=== PATIENT | male | born 1985 | race Caucasian/White ===

== ENCOUNTER 2019-11-04 14:15 | Emergency (ER) | payer SELFPAY ==
--- NOTE | 2019-11-04 14:49 | EDM.PDOC ---
ED HPI GENERAL MEDICAL PROBLEM - General Chief Complaint: Flank Pain Stated Complaint: [facility] Time Seen by Provider: 11/04/19 14:25 Source of Information: Reports: Patient, RN Notes Reviewed - History of Present Illness INITIAL COMMENTS - FREE TEXT/NARRATIVE: 34 yr old male comes in with L lower abd pain. this started about 4 hrs ago. pain is mostly L flank and L lower abd but also has radiated to RLQ. Has not radiated strongly to his back. Mild nausea, no vomiting. No voiding sx, no fever or chills. Pt came here by ambulance. was given dilaudid 0.5 mg and zofran 4 mg IV en route so pain not as severe at time of exam. Left Flank Pain Score (Numeric/FACES): 4 - Related Data Allergies Allergy/AdvReac Type Severity Reaction Status Date / Time bee venom protein (honey bee) Allergy Cannot Verified 11/04/19 14:20 Remember Home Meds: Home Meds Acetaminophen [Tylenol] 325 mg PO Q4H PRN 11/04/19 [History] Ibuprofen 200 mg PO Q6H PRN 11/04/19 [History] Past Medical History Gastrointestinal History: Reports: GERD - Past Surgical History GI Surgical History: Reports: Esophageal Dilatation Musculoskeletal Surgical History: Reports: Other (See Below) Other Musculoskeletal Surgeries/Procedures:: elbow sx Social & Family History - Family History Family Medical History: Noncontributory - Tobacco Use Smoking Status *Q: Current Every Day Smoker Years of Tobacco use: 10 Packs/Tins Daily: 1 Second Hand Smoke Exposure: No - Caffeine Use Caffeine Use: Reports: Coffee - Alcohol Use Days Per Week of Alcohol Use: 5 Number of Drinks Per Day: 1 Total Drinks Per Week: 5 - Recreational Drug Use Recreational Drug Use: No ED ROS GENERAL - Review of Systems Review Of Systems: See Below Constitutional: Denies: Fever, Chills, Diaphoresis HEENT: Reports: No Symptoms Respiratory: Denies: Shortness of Breath Cardiovascular: Denies: Chest Pain GI/Abdominal: Reports: Abdominal Pain, Constipation, Nausea. Denies: Diarrhea, Hematochezia, Melena, Vomiting : Reports: No Symptoms Musculoskeletal: Reports: No Symptoms Neurological: Reports: Dizziness ED EXAM, RENAL/ - Physical Exam Exam: See Below General Appearance: Alert, No Apparent Distress Throat/Mouth: Normal Inspection Neck: Supple Respiratory/Chest: No Respiratory Distress, Lungs Clear, Normal Breath Sounds Cardiovascular: Regular Rate, Rhythm GI/Abdominal: Soft, Tender (mild to moderate tenderness L abd and L lower abd, very mild tenderness RLQ) Extremities: Normal Inspection, Normal Range of Motion Neurological: Alert, Oriented, No Motor/Sensory Deficits Skin Exam: Warm, Dry, Normal Color Course - Vital Signs Last Recorded V/S: Last Vital Signs Temp 97.9 F 11/04/19 14:17 Pulse 96 11/04/19 14:17 Resp 18 11/04/19 14:17 BP 131/75 11/04/19 14:17 Pulse Ox 99 11/04/19 14:17 - Orders/Labs/Meds Orders: Active Orders 24 hr Category Date Time Status Peripheral IV Care [RC] . DIRECTED Care 11/04/19 15:00 Active Abdomen 2V AP Flat Upright [CR] Stat Exams 11/04/19 15:49 Taken Peripheral IV Insertion Adult [OM.PC] Stat Oth 11/04/19 14:59 Ordered Labs: Laboratory Tests 11/04/19 11/04/19 11/04/19 Range/Units 14:48 15:20 15:20 WBC 15.72 H (4.23-9.07) K/mm3 RBC 4.90 (4.63-6.08) M/mm3 Hgb 14.0 (13.7-17.5) gm/dl Hct 42.8 (40.1-51.0) % MCV 87.3 (79.0-92.2) fl MCH 28.6 (25.7-32.2) pg MCHC 32.7 (32.2-35.5) g/dl RDW Std Deviation 46.4 H (35.1-43.9) fL Plt Count 257 (163-337) K/mm3 MPV 9.9 (9.4-12.3) fl Neut % (Auto) 91.3 H (34.0-67.9) % Lymph % (Auto) 4.0 L (21.8-53.1) % [place] % (Auto) 4.3 L (5.3-12.2) % Eos % (Auto) 0.1 L (0.8-7.0) Baso % (Auto) 0.2 (0.1-1.2) % Neut # (Auto) 14.35 H (1.78-5.38) K/mm3 Lymph # (Auto) 0.63 L (1.32-3.57) K/mm3 [place] # (Auto) 0.67 (0.30-0.82) K/mm3 Eos # (Auto) 0.02 L (0.04-0.54) K/mm3 Baso # (Auto) 0.03 (0.01-0.08) K/mm3 Manual Slide Review Abnormal smear Sodium (136-145) mEq/L Potassium (3.5-5.1) mEq/L Chloride (98-107) mEq/L Carbon Dioxide (21-32) mEq/L Anion Gap (5-15) BUN (7-18) mg/dL Creatinine (0.7-1.3) mg/dL Est Cr Clr Drug Dosing mL/min Estimated GFR (MDRD) (>60) mL/min BUN/Creatinine Ratio (14-18) Glucose (74-106) mg/dL Calcium (8.5-10.1) mg/dL Total Bilirubin (0.2-1.0) mg/dL AST (15-37) U/L ALT (16-63) U/L Alkaline Phosphatase (46-116) U/L C-Reactive Protein 0.4 (<1.0) mg/dL Total Protein (6.4-8.2) g/dl Albumin (3.4-5.0) g/dl Globulin gm/dL Albumin/Globulin Ratio (1-2) Urine Color Yellow (Yellow) Urine Appearance Clear (Clear) Urine pH 5.5 (5.0-8.0) Ur Specific [place] > or = 1.030 (1.005-1.030) Urine Protein Negative (Negative) Urine Glucose (UA) Negative (Negative) Urine Ketones Negative (Negative) Urine Occult Blood Negative (Negative) Urine Nitrite Negative (Negative) Urine Bilirubin Negative (Negative) Urine Urobilinogen 0.2 (0.2-1.0) Ur Leukocyte Esterase Negative (Negative) 11/04/19 Range/Units 15:20 WBC (4.23-9.07) K/mm3 RBC (4.63-6.08) M/mm3 Hgb (13.7-17.5) gm/dl Hct (40.1-51.0) % MCV (79.0-92.2) fl MCH (25.7-32.2) pg MCHC (32.2-35.5) g/dl RDW Std Deviation (35.1-43.9) fL Plt Count (163-337) K/mm3 MPV (9.4-12.3) fl Neut % (Auto) (34.0-67.9) % Lymph % (Auto) (21.8-53.1) % [place] % (Auto) (5.3-12.2) % Eos % (Auto) (0.8-7.0) Baso % (Auto) (0.1-1.2) % Neut # (Auto) (1.78-5.38) K/mm3 Lymph # (Auto) (1.32-3.57) K/mm3 [place] # (Auto) (0.30-0.82) K/mm3 Eos # (Auto) (0.04-0.54) K/mm3 Baso # (Auto) (0.01-0.08) K/mm3 Manual Slide Review Sodium 143 (136-145) mEq/L Potassium 4.1 (3.5-5.1) mEq/L Chloride 106 (98-107) mEq/L Carbon Dioxide 25 (21-32) mEq/L Anion Gap 16.1 H (5-15) BUN 19 H (7-18) mg/dL Creatinine 0.8 (0.7-1.3) mg/dL Est Cr Clr Drug Dosing 104.71 mL/min Estimated GFR (MDRD) > 60 (>60) mL/min BUN/Creatinine Ratio 23.8 H (14-18) Glucose 128 H (74-106) mg/dL Calcium 9.3 (8.5-10.1) mg/dL Total Bilirubin 0.2 (0.2-1.0) mg/dL AST 31 (15-37) U/L ALT 52 (16-63) U/L Alkaline Phosphatase 88 (46-116) U/L C-Reactive Protein (<1.0) mg/dL Total Protein 7.5 (6.4-8.2) g/dl Albumin 3.9 (3.4-5.0) g/dl Globulin 3.6 gm/dL Albumin/Globulin Ratio 1.1 (1-2) Urine Color (Yellow) Urine Appearance (Clear) Urine pH (5.0-8.0) Ur Specific [place] (1.005-1.030) Urine Protein (Negative) Urine Glucose (UA) (Negative) Urine Ketones (Negative) Urine Occult Blood (Negative) Urine Nitrite (Negative) Urine Bilirubin (Negative) Urine Urobilinogen (0.2-1.0) Ur Leukocyte Esterase (Negative) Meds: Medications Discontinued Medications Generic Name Dose Route Start Last Admin Trade Name Freq PRN Reason Stop Dose Admin Sodium Chloride 1,000 mls @ 999 mls/hr 11/04/19 15:00 11/04/19 15:13 Normal Saline IV 999 mls/hr ONETIME RALPH Administration Magnesium Citrate 296 ml 11/04/19 16:56 11/04/19 17:06 Citrate Of Magnesia PO 11/04/19 16:57 296 ml ONETIME ONE Administration Sodium Chloride 10 ml 11/04/19 14:59 11/04/19 15:13 Saline Flush FLUSH 10 ml ASDIRECTED PRN Administration Keep Vein Open - Re-Assessments/Exams Free Text/Narrative Re-Assessment/Exam: 11/04/19 18:44 WBC mildly elevated, CRP nl. flat and upright abd shows a lot of stool R colon. He is resting pretty comfortably at time of reexam. His tenderness is still L abd, he does not have a surgical abd at this time, discharge instr. as documented. Departure - Departure Time of Disposition: 16:56 Disposition: Home, Self-Care 01 Condition: Fair Clinical Impression: Abdominal pain Qualifiers: Abdominal location: left lower quadrant Qualified Code(s): R10.32 - Left lower quadrant pain Constipation Qualifiers: Constipation type: unspecified constipation type Qualified Code(s): K59.00 - Constipation, unspecified - Discharge Information Referrals: PCP,None [Primary Care Provider] - Forms: ED Department Discharge Additional Instructions: Clear liquids until tomorrow, than careful bland diet as tolerated. Mag citrate , drink 1/2 bottle this evening, drink the other half if you have not a good BM by tomorrow morning. Return to ED if symptoms worsening in any way, especially if pain moves to right lower abd as discussed. Sepsis Event Note - Evaluation Sepsis Screening Result: No Definite Risk - Focused Exam Vital Signs: Vital Signs Temp Pulse Resp BP Pulse Ox 11/04/19 14:17 97.9 F 96 18 131/75 99 Date Exam was Performed: 11/04/19 Time Exam was Performed: 18:43 - My Orders Last 24 Hours: My Active Orders 11/04/19 14:59 Peripheral IV Insertion Adult [OM.PC] Stat 11/04/19 15:00 Peripheral IV Care [RC] . DIRECTED 11/04/19 15:49 Abdomen 2V AP Flat Upright [CR] Stat - Assessment/Plan Last 24 Hours: My Active Orders 11/04/19 14:59 Peripheral IV Insertion Adult [OM.PC] Stat 11/04/19 15:00 Peripheral IV Care [RC] . DIRECTED 11/04/19 15:49 Abdomen 2V AP Flat Upright [CR] Stat
[2019-11-04] MEDS ORDERED: Sodium Chloride 0.9% 10 ML Syringe FLUSH PRN (14:59)
[2019-11-04] MEDS ORDERED: Sodium Chloride 0.9% 1,000 ML IV SCH (15:00)
[2019-11-04] MEDS ORDERED: Magnesium Citrate Solution 296 ML Bottle PO ONE (16:56)
--- NOTE | 2019-11-05 07:48 | CR ---
Abdomen: Supine and upright views the abdomen were obtained. Comparison: No previous study. Scattered gas within small bowel is noted. Hazy soft tissue density is noted within the left abdomen raising the possibility of left-sided abdominal mass. Bony structures are unremarkable. No free air is seen. Impression: 1. Masslike density within the left abdomen. 2. 2 view abdominal study is otherwise unremarkable. Diagnostic code #3 This report was dictated in MDT
== END 2019-11-04 17:05 | disposition home or self-care (01) ==
LOC: JD.ED 14:15
DX: K59.00 Constipation, unspecified (principal); F17.210 Nicotine dependence, cigarettes, uncomplicated; Z91.030 Bee allergy status
CPT/HCPCS: 36415; 74019; 80053; 81003; 85025; 86140; 96360; 99284; A9270; J7030; 99283

== ENCOUNTER 2019-11-05 00:25 | Emergency (ER) | payer SELFPAY ==
[2019-11-05] MEDS ORDERED: HYDROmorphone 1 MG/ML Syringe IVPUSH ONE ×2 (00:50→03:54)
[2019-11-05] MEDS ORDERED: Metoclopramide 10 MG/2 ML SDV IVPUSH ONE (00:50)
--- NOTE | 2019-11-05 00:56 | EDM.PDOC ---
ED HPI GENERAL MEDICAL PROBLEM - General Chief Complaint: Abdominal Pain Stated Complaint: ABDOMINAL PAIN Time Seen by Provider: 11/05/19 00:50 Source of Information: Reports: Patient History Limitations: Reports: No Limitations - History of Present Illness INITIAL COMMENTS - FREE TEXT/NARRATIVE: 34-year-old male returns to the ED with worsening left ellen-abdominal pain. He states pain started Tuesday evening and has progressively worsened. Through the ED earlier yesterday at 1430 hrs. with left ellen-abdominal pain. He was found to have an elevated white count at that time without a fever. He was treated for constipation and states that he did have 2 very small minimal bowel movements after taking the magnesium citrate. He states now even if he tries to take water comes back up almost immediately. He feels bloated and distended. It hurts to cough take a deep breath or riding a vehicle on the left side of the abdomen. He believes that he still voiding normally although it seems to be slower to start his stream. He states he is still passing some flatus per rectum. He did experience fever and chills with Rigor's about 1800 hrs. last night. Has had no previous abdominal surgery. Onset: Gradual Onset Date: 11/03/19 Onset Time: 22:00 Duration: Hour(s):, Getting Worse Location: Reports: Abdomen (Left ellen-abdominal pain) Quality: Reports: Other (Erwin pain with a colicky component) Severity: Moderate (8 out of 10) Improves with: Reports: None Worsens with: Reports: Other Context: Reports: Other (On 10 he is occurrence gradually worsening over the last 30 hours). Denies: Activity (Drinking water makes him vomit.), Exercise, Lifting, Sick Contact, Trauma Associated Symptoms: Reports: Fever/Chills, Loss of Appetite, Malaise, Nausea/ Vomiting. Denies: Headaches, Rash, Seizure, Shortness of Breath, Syncope Treatments ADMITTING COORDINATOR: Reports: Acetaminophen, NSAIDS Left Lower Abdomen Pain Score (Numeric/FACES): 6 - Related Data Allergies Allergy/AdvReac Type Severity Reaction Status Date / Time bee venom protein (honey bee) Allergy Cannot Verified 11/05/19 00:36 Remember Home Meds: Home Meds Acetaminophen [Tylenol] 325 mg PO Q4H PRN 11/04/19 [History] Ibuprofen 200 mg PO Q6H PRN 11/04/19 [History] Past Medical History Gastrointestinal History: Reports: GERD - Past Surgical History GI Surgical History: Reports: Esophageal Dilatation Musculoskeletal Surgical History: Reports: Other (See Below) Other Musculoskeletal Surgeries/Procedures:: elbow sx Social & Family History - Family History Family Medical History: Noncontributory - Tobacco Use Smoking Status *Q: Never Smoker - Caffeine Use Caffeine Use: Reports: None - Living Situation & Occupation Living situation: Reports: Single Occupation: Employed ED ROS GENERAL - Review of Systems Review Of Systems: See Below Constitutional: Reports: Fever, Chills, Malaise, Weakness, Fatigue, Decreased Appetite HEENT: Reports: No Symptoms Respiratory: Reports: Shortness of Breath Cardiovascular: Reports: No Symptoms (Cannot take a full deep breath as it makes the abdominal pain worse.) Endocrine: Reports: No Symptoms GI/Abdominal: Reports: Abdominal Pain (Diffuse left ellen-abdominal pain), Distension, Flatus (Feels distended and bloated. He believes he still passing flatus), Vomiting (Lisseth water content). Denies: Constipation, Melena, Other : Reports: No Symptoms Musculoskeletal: Reports: No Symptoms Skin: Reports: No Symptoms Neurological: Reports: No Symptoms Psychiatric: Reports: No Symptoms Hematologic/Lymphatic: Reports: No Symptoms Immunologic: Reports: No Symptoms ED EXAM, GI/ABD - Physical Exam Exam: See Below Exam Limited By: No Limitations General Appearance: Alert, WD/WN, Mild Distress, Other (Temperature is 36.4 with a heart rate of 93 respiratory is 20 pulse ox 98% room air BP mildly elevated 1 4093) Eyes: Bilateral: Normal Appearance (No scleral icterus or blepharal pallor) Throat/Mouth: Normal Inspection, Normal Lips, Normal Oropharynx, Other (Tongue is moist but black in color as he did have some Pepto-Bismol earlier yesterday) Head: Atraumatic, Normocephalic Neck: Normal Inspection, Supple, Non-Tender, Full Range of Motion. No: Lymphadenopathy (L), Lymphadenopathy (R) Respiratory/Chest: No Respiratory Distress, Lungs Clear, Normal Breath Sounds ( Mild tachypnea.), No Accessory Muscle Use, Respiratory Distress Cardiovascular: Normal Peripheral Pulses, Regular Rate, Rhythm, No Edema, No Gallop, No Murmur, No Rub GI/Abdominal Exam: Distended (The abdomen is diffusely distended and tympanitic to percussion in the upper abdomen but dull to percussion lower abdomen.), Guarding, Rigid, Rebound (On the left hemiabdomen particularly mid left abdomen) , Abnormal Bowel Sounds (All sounds are hyperactive in all 4 quadrants.), Mass ( Left mid abdomen left upper quadrant feels like a solid mass either kidney or spleen.), Other (No surgical scars) (Male) Exam: No Hernia Back Exam: Normal Inspection, Full Range of Motion. No: CVA Tenderness (L), CVA Tenderness (R) Extremities: Normal Inspection, Normal Range of Motion, Non-Tender Neurological: Alert, Oriented, CN II-XII Intact, Normal Cognition Psychiatric: Normal Affect, Normal Mood Skin Exam: Warm, Dry, Intact, Normal Color, No Rash Course - Vital Signs Last Recorded V/S: Last Vital Signs Temp 36.8 C 11/05/19 03:52 Pulse 102 H 11/05/19 03:52 Resp 18 11/05/19 03:52 BP 152/94 H 11/05/19 03:52 Pulse Ox 97 11/05/19 03:52 - Orders/Labs/Meds Orders: Active Orders 24 hr Category Date Time Status Abdomen Pelvis w Cont [CT] Stat Exams 11/05/19 00:52 Taken CULTURE BLOOD [BC] Stat Lab 11/05/19 01:05 Received CULTURE BLOOD [BC] Stat Lab 11/05/19 01:25 Received Dextrose 5%-0.9% NaCl [Dextrose 5%-Normal Saline] 1,000 Med 11/05/19 01:00 Active ml IV ASDIRECTED Sodium Chloride 0.9% [Saline Flush] Med 11/05/19 01:42 Active 10 ml FLUSH ONETIME PRN Blood Culture x2 Reflex Set [OM.PC] Stat Oth 11/05/19 00:51 Ordered Medication Orders Dextrose/Sodium Chloride (Dextrose 5%-Normal Saline) 1,000 mls @ 999 mls/hr IV ASDIRECTED RALPH Last Admin: 11/05/19 01:16 Dose: 999 mls/hr Sodium Chloride (Saline Flush) 10 ml FLUSH ONETIME PRN PRN Reason: KEEP VEIN OPEN Last Admin: 11/05/19 02:34 Dose: 10 ml Labs: Laboratory Tests 11/05/19 11/05/19 11/05/19 Range/Units 01:05 01:05 01:05 WBC 12.29 H (4.23-9.07) K/mm3 RBC 4.09 L (4.63-6.08) M/mm3 Hgb 11.5 L D (13.7-17.5) gm/dl Hct 36.0 L (40.1-51.0) % MCV 88.0 (79.0-92.2) fl MCH 28.1 (25.7-32.2) pg MCHC 31.9 L (32.2-35.5) g/dl RDW Std Deviation 47.0 H (35.1-43.9) fL Plt Count 257 (163-337) K/mm3 MPV 10.2 (9.4-12.3) fl Neutrophils % (Manual) 76 H (40-60) % Band Neutrophils % 0 (0-10) % Lymphocytes % (Manual) 17 L (20-40) % Atypical Lymphs % 0 % Monocytes % (Manual) 6 (2-10) % Eosinophils % (Manual) 1 (0.8-7.0) % Basophils % (Manual) 0 L (0.2-1.2) Platelet Estimate Adequate RBC Morph Comment Normal PT 10.7 (9.7-12.0) SECONDS INR 0.98 APTT 24 (22-31) SECONDS Sodium 145 (136-145) mEq/L Potassium 3.5 (3.5-5.1) mEq/L Chloride 108 H (98-107) mEq/L Carbon Dioxide 24 (21-32) mEq/L Anion Gap 16.5 H (5-15) BUN 17 (7-18) mg/dL Creatinine 0.8 (0.7-1.3) mg/dL Est Cr Clr Drug Dosing 104.71 mL/min Estimated GFR (MDRD) > 60 (>60) mL/min BUN/Creatinine Ratio 21.3 H (14-18) Glucose 133 H (74-106) mg/dL Lactic Acid (0.4-2.0) mmol/L Calcium 8.3 L (8.5-10.1) mg/dL Magnesium 2.1 (1.8-2.4) mg/dl Total Bilirubin 0.2 (0.2-1.0) mg/dL AST 28 (15-37) U/L ALT 40 (16-63) U/L Alkaline Phosphatase 78 (46-116) U/L C-Reactive Protein 1.0 (<1.0) mg/dL Total Protein 6.8 (6.4-8.2) g/dl Albumin 3.5 (3.4-5.0) g/dl Globulin 3.3 gm/dL Albumin/Globulin Ratio 1.1 (1-2) Lipase 110 (73-393) U/L 11/05/19 Range/Units 01:05 WBC (4.23-9.07) K/mm3 RBC (4.63-6.08) M/mm3 Hgb (13.7-17.5) gm/dl Hct (40.1-51.0) % MCV (79.0-92.2) fl MCH (25.7-32.2) pg MCHC (32.2-35.5) g/dl RDW Std Deviation (35.1-43.9) fL Plt Count (163-337) K/mm3 MPV (9.4-12.3) fl Neutrophils % (Manual) (40-60) % Band Neutrophils % (0-10) % Lymphocytes % (Manual) (20-40) % Atypical Lymphs % % Monocytes % (Manual) (2-10) % Eosinophils % (Manual) (0.8-7.0) % Basophils % (Manual) (0.2-1.2) Platelet Estimate RBC Morph Comment PT (9.7-12.0) SECONDS INR APTT (22-31) SECONDS Sodium (136-145) mEq/L Potassium (3.5-5.1) mEq/L Chloride (98-107) mEq/L Carbon Dioxide (21-32) mEq/L Anion Gap (5-15) BUN (7-18) mg/dL Creatinine (0.7-1.3) mg/dL Est Cr Clr Drug Dosing mL/min Estimated GFR (MDRD) (>60) mL/min BUN/Creatinine Ratio (14-18) Glucose (74-106) mg/dL Lactic Acid 1.2 (0.4-2.0) mmol/L Calcium (8.5-10.1) mg/dL Magnesium (1.8-2.4) mg/dl Total Bilirubin (0.2-1.0) mg/dL AST (15-37) U/L ALT (16-63) U/L Alkaline Phosphatase (46-116) U/L C-Reactive Protein (<1.0) mg/dL Total Protein (6.4-8.2) g/dl Albumin (3.4-5.0) g/dl Globulin gm/dL Albumin/Globulin Ratio (1-2) Lipase (73-393) U/L Meds: Medications Generic Name Dose Route Start Last Admin Trade Name Freq PRN Reason Stop Dose Admin Dextrose/Sodium Chloride 1,000 mls @ 999 mls/hr 11/05/19 01:00 11/05/19 01:16 Dextrose 5%-Normal Saline IV 999 mls/hr ASDIRECTED RALPH Administration Sodium Chloride 10 ml 11/05/19 01:42 11/05/19 02:34 Saline Flush FLUSH 10 ml ONETIME PRN Administration KEEP VEIN OPEN Discontinued Medications Generic Name Dose Route Start Last Admin Trade Name Freq PRN Reason Stop Dose Admin Diatrizoate Meglum/Diatrizoate Sod 60 ml 11/05/19 01:42 11/05/19 02:34 Gastrografin 37% PO 11/05/19 01:43 60 ml ONETIME ONE Administration Hydromorphone HCl 1 mg 11/05/19 00:50 11/05/19 01:16 Dilaudid IVPUSH 11/05/19 00:51 1 mg ONETIME ONE Administration Hydromorphone HCl 1 mg 11/05/19 03:54 Dilaudid IVPUSH 11/05/19 03:55 ONETIME ONE Iopamidol 100 ml 11/05/19 01:42 11/05/19 02:34 Isovue-300 (61%) IVPUSH 11/05/19 01:43 100 ml ONETIME ONE Administration Metoclopramide HCl 10 mg 11/05/19 00:50 11/05/19 01:16 Reglan IVPUSH 11/05/19 00:51 10 mg ONETIME ONE Administration - Radiology Interpretation Free Text/Narrative:: 34-year-old male presents to the ED for the second time in 24 hours with worsening left-sided ellen-abdominal pain. He was seen earlier yesterday afternoon with left-sided abdominal pain that started at 2200 hrs. the night before. He had an elevated white count at 15.72 with 91.3% neutrophils on the auto differential. Subsequently he is experienced fever and chills with Reiger' s this last evening and gradually worsening of the pain. It hurts to walk it hurts to cough it hurts to ride in a vehicle. Examination reveals him to be significantly distended abdominally. Tympanitic to percussion mostly over right hemiabdomen. Dull to percussion in the left hemiabdomen. He has peritoneal signs on levo light percussion on the left side and a very firm guarding fullness/mass affect throughout the left hemiabdomen. Inguinal hernia identified. No previous surgical scars. He believes he still passing some flatus. Clinically has an acute abdomen of unclear etiology on the left side. I did look at his KUB done earlier yesterday and it did show an absence of bowel and gas on the left side of the abdomen. Alysis done earlier this morning was negative for any red cells as he was complaining of some left flank pain at the time of Dr. Mann's exam I am not sure he will build to keep down oral contrast but we will give it a try. He will require CT of the abdomen with oral and IV contrast ideally. Repeat labs including blood cultures x2 will be done. Lactic acid as well. - Re-Assessments/Exams Free Text/Narrative Re-Assessment/Exam: 11/05/19 02:03 White count is 12.29 differential pending. Hemoglobin is 11.5 with hematocrit of 36.0. Platelet count 257,000. PT is 10.7 with an INR of 0.98. PTT is 24. Sodium 145 with a potassium of 3.5. Chloride 108 with a bicarb of 24. Anion gap is mildly elevated at 16.5. BUN is 17 with a creatinine of 0.8. Glucose is 133. Lactic acid is 1.2. Calcium is 8.3. Magnesium is 2.1. Bilirubin is 0.2. Liver function otherwise normal. C- reactive protein is pending. Total protein was 6.8 with an albumin fraction of 3.5 lipase is 110 normal. 11/05/19 02:55 Differential of the white count reveal 76% neutrophils no bands cells 17% lymphocytes. CT of the abdomen and pelvis has been done with IV and oral contrast. Visualized portions of the heart and base of lungs appear to be normal. Stomach appears to be normal and is contrast-filled. Spleen is normal. Pancreas appears normal. Liver appears homogeneous. There are no calcified gallstones and a mildly distended gallbladder. Only the right adrenal gland is visualized and is normal. On the left side there is a large complicated cystic mass which appears to be originating from the lower pole of the left kidney that measures 11 cm x 13.6 centimeters. Visualized portions of the bowel appear to be normal. Bladder is filled and is normal. Once again I would I will await the radiologist report but it appears that he likely is going to have to have emergent consultation with surgeon. 11/05/19 03:40 Vrad report is now available. There are comments are that the liver appears normal with no masses. Gallbladder and bile ducts are normal. Pancreas is normal with no ductal dilatation spleen appears normal. Adrenal glands are normal with no masses. Kidneys and ureters show a large left renal lower pole mass containing fat and soft tissue components with associated perinephric hemorrhage. Mass measures approximately 10.7 x 7.5 cm and extends craniocaudally 13.2 cm. 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 Mild left hydronephrosis appreciated. Stomach and bowel showed liquid stool throughout the colon. Appendix is within normal limits. Intraperitoneal space is unremarkable no free air no significant fluid collections. Vasculature a small 1.3 cm focus of contrast within the mass could represent possible pseudoaneurysm or may be part of AML or represent active hemorrhage. Note on recheck his hemoglobin is 14.0 when he was seen as then 24 hours ago now down to 11.5. 11/05/19 04:00 I have discussed the case with Dr. 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 He is unclear at this point time how will be managed. Possible interventional radiology management. I did speak with through the ED whom has accepted care of this patient. He will therefore be transported to their facility by ground ambulance. Is having more pain at this time and a repeated Dilaudid 1 mg IV. 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 Sepsis Event Note - Evaluation Sepsis Screening Result: No Definite Risk - Focused Exam Vital Signs: Vital Signs Temp Pulse Resp BP Pulse Ox 11/05/19 03:52 36.8 C 102 H 18 152/94 H 97 11/05/19 02:47 78 143/89 H 97 11/05/19 00:31 36.4 C 93 20 140/93 H 98 Date Exam was Performed: 11/05/19 Time Exam was Performed: 04:00 - My Orders Last 24 Hours: My Active Orders 11/05/19 00:51 Blood Culture x2 Reflex Set [OM.PC] Stat 11/05/19 00:52 Abdomen Pelvis w Cont [CT] Stat 11/05/19 01:00 Dextrose 5%-0.9% NaCl [Dextrose 5%-Normal Saline] 1,000 ml IV ASDIRECTED 11/05/19 01:05 CULTURE BLOOD [BC] Stat 11/05/19 01:25 CULTURE BLOOD [BC] Stat 11/05/19 01:42 Sodium Chloride 0.9% [Saline Flush] 10 ml FLUSH ONETIME PRN - Assessment/Plan Last 24 Hours: My Active Orders 11/05/19 00:51 Blood Culture x2 Reflex Set [OM.PC] Stat 11/05/19 00:52 Abdomen Pelvis w Cont [CT] Stat 11/05/19 01:00 Dextrose 5%-0.9% NaCl [Dextrose 5%-Normal Saline] 1,000 ml IV ASDIRECTED 11/05/19 01:05 CULTURE BLOOD [BC] Stat 11/05/19 01:25 CULTURE BLOOD [BC] Stat 11/05/19 01:42 Sodium Chloride 0.9% [Saline Flush] 10 ml FLUSH ONETIME PRN
[2019-11-05] MEDS ORDERED: Dextrose 5%-0.9% NaCl 1,000 ML IV SCH (01:00)
[2019-11-05] MEDS ORDERED: Diatrizoate Meglumine/Diatrizoate Sodium 37% 120 ML Bottle PO ONE (01:42)
[2019-11-05] MEDS ORDERED: Sodium Chloride 0.9% 10 ML Syringe FLUSH PRN (01:42)
[2019-11-05] MEDS ORDERED: Iopamidol 612 MG/ML 100 ML Bottle IVPUSH ONE (01:42)
[2019-11-05] MEDS ORDERED: Sodium Chloride 0.9% with KCl 1,000 ML IV SCH (04:15)
--- NOTE | 2019-11-05 07:49 | CT ---
CT abdomen and pelvis Technique: Multiple axial sections were obtained from above the dome of the diaphragm inferiorly through the pubic symphysis. Intravenous and oral contrast was utilized. Delayed images were also obtained through the abdomen and pelvis. Comparison: Prior abdominal x-ray performed earlier on 11/04/19. Findings: Fatty containing lesion is seen within the lower left kidney measuring approximately 10.0 cm in size. Acute hemorrhage is seen surrounding this mass is a well as surrounding the left kidney. There is a focal area of contrast within this mass presumably due to acute hemorrhage measuring 1.4 cm. Differential for this 1.4 cm finding also includes a pseudoaneurysm. No additional abnormality is seen within the kidneys. Delayed images shows contrast excretion from both kidneys. Contrast is noted within both distal ureters and bladder on the delayed images. Other findings: Visualized lung bases show nothing acute. Liver contains no focal parenchymal abnormality. Spleen appears within normal limits. Adrenal glands show no nodule. Gallbladder contains no calcified gallstones. Pancreas appears normal. Aorta shows no aneurysm. No retroperitoneal adenopathy or mesenteric abnormalities are seen. Small fat-containing inguinal hernias are identified bilaterally. Appendix not visualized with certainty. Liquid stool noted within the colon. Bone window settings were reviewed which show no acute osseous finding. Minimal fat-containing umbilical hernias are noted. Impression: 1. Large fatty containing mass within the lower left kidney measuring around 10.0 cm. This finding is most likely due to an angiomyolipoma. There is hemorrhage being seen within and around this mass and associated kidney which is compatible with a bleeding angiomyolipoma. 2. 1.4 cm focal area of contrast within this mass which may represent active bleeding or pseudoaneurysm. 3. No other acute abnormality is appreciated on CT study of the abdomen and pelvis. Diagnostic code #5 This report was dictated in MDT I agree with preliminary report from [facility], finalized on 11/05/19, 4:29 AM Central Time
== END 2019-11-05 04:21 ==
LOC: JD.ED 00:25
DX: N28.89 Other specified disorders of kidney and ureter (principal); K21.9 Gastro-esophageal reflux disease without esophagitis; Z91.030 Bee allergy status
CPT/HCPCS: 36415; 74177; 80053; 83605; 83690; 83735; 85007; 85027; 85610; 85730; 86140; 87040; 96361; 96374; 96375; 96376; 99285; J1170; J2765; J3480; J7042; Q9963; Q9967

== ENCOUNTER 2019-12-30 16:51 | Emergency (ER) | payer OTHER ==
--- NOTE | 2019-12-30 17:20 | EDM.PDOC ---
ED HPI GENERAL MEDICAL PROBLEM - General Chief Complaint: Flank Pain Stated Complaint: KIDNEY TUMOR NOW HAS BLOOD IN URINE Time Seen by Provider: 12/30/19 17:19 Source of Information: Reports: Patient History Limitations: Reports: No Limitations - History of Present Illness INITIAL COMMENTS - FREE TEXT/NARRATIVE: 34-year-old male presents to the ED with gross hematuria. He states his first void this morning was about 10:00 in the urine was darker in color and perhaps slightly kaz. The next urine seemed to be fairly clear. However the last urine which was about 3 hours ago came out gross hematuria and he has pictures to prove it. Patient is known to have an angiomyolipoma of the left kidney and was sent to [place] November 04 when it was discovered on CT scan. Nights unclear at this time what transpired but the goal at that time was to have interventional radiology perhaps embolize the large angiomyolipoma with the hopes of causing it to shrink as it appeared to be hemorrhaging within itself. Ports he had to see a rn baby about 2 weeks ago because of elevated platelet count. The rn baby felt that this was nothing serious. Onset: Today Onset Date: 12/30/19 Onset Time: 10:00 Duration: Hour(s):, Getting Worse Location: Reports: Abdomen (Left mid abdominal pain), Other (Gross hematuria on multiple occasions today) Quality: Reports: Ache, Other (There was hematuria) Severity: Severe Improves with: Reports: None Worsens with: Reports: None Context: Denies: Activity, Exercise, Lifting, Sick Contact, Trauma, Other Associated Symptoms: Denies: Confusion, Chest Pain, Cough, cough w sputum, Fever /Chills, Headaches, Loss of Appetite, Malaise, Nausea/Vomiting, Rash, Shortness of Breath, Syncope, Weakness Treatments CLINICAL INFORMATICS SPEC: Reports: Other (see below) (None.) - Related Data Allergies Allergy/AdvReac Type Severity Reaction Status Date / Time bee venom protein (honey bee) Allergy Cannot Verified 11/05/19 00:36 Remember Home Meds: Home Meds Acetaminophen [Tylenol] 325 mg PO Q4H PRN 11/04/19 [History] Past Medical History Gastrointestinal History: Reports: GERD Genitourinary History: Reports: Other (See Below) Other Genitourinary History: large 'soft ball size' fatty tumor( angiomyolipoma ) on left kindey. states it ruptured and he had surgery but is unsure if tumor is still there or if it was removed. - Past Surgical History GI Surgical History: Reports: Esophageal Dilatation Musculoskeletal Surgical History: Reports: Other (See Below) Other Musculoskeletal Surgeries/Procedures:: elbow sx Social & Family History - Family History Family Medical History: Noncontributory - Tobacco Use Smoking Status *Q: Current Every Day Smoker Years of Tobacco use: 15 Packs/Tins Daily: 1 - Caffeine Use Caffeine Use: Reports: Coffee - Living Situation & Occupation Living situation: Reports: Single Occupation: Employed ED ROS GENERAL - Review of Systems Review Of Systems: See Below Constitutional: Reports: Fever, Chills, Malaise (Last week but not in the last 48 hours), Fatigue, Decreased Appetite (More fatigued than normal). Denies: Weight Loss HEENT: Reports: No Symptoms Respiratory: Reports: No Symptoms Cardiovascular: Reports: No Symptoms Endocrine: Reports: Fatigue GI/Abdominal: Reports: Abdominal Pain (Left mid upper abdominal pain rating through to the left flank), Nausea (Occasional nausea). Denies: Constipation, Diarrhea : Reports: Flank Pain (Flank pain), Other (Post hematuria). Denies: Dysuria Musculoskeletal: Reports: No Symptoms Skin: Reports: Pallor (No pallor) Neurological: Reports: No Symptoms Psychiatric: Reports: No Symptoms Hematologic/Lymphatic: Reports: No Symptoms Immunologic: Reports: No Symptoms ED EXAM, RENAL/ - Physical Exam Exam: See Below Exam Limited By: No Limitations General Appearance: Alert, WD/WN, No Apparent Distress, Other (Temperature is 36.5 heart rate 108 and sinus respiratory to be 18 BP 146 101 with O2 sats of 97 % on room air) Eye Exam: Bilateral Eye: PERRL, Other (Mild blepharal pallor.) Throat/Mouth: Normal Inspection, Normal Lips, Normal Oropharynx Head: Atraumatic, Normocephalic Neck: Normal Inspection, Supple, Non-Tender, Full Range of Motion. No: Lymphadenopathy (L), Lymphadenopathy (R) Respiratory/Chest: No Respiratory Distress, Lungs Clear, Normal Breath Sounds, No Accessory Muscle Use Cardiovascular: Normal Peripheral Pulses, Regular Rate, Rhythm, No Edema, No Gallop, No Murmur, No Rub, Tachycardia GI/Abdominal: Normal Bowel Sounds, Guarding (Left mid abdomen.), Tender (In his mid left hemiabdomen and left upper quadrant. There is a palpable mass in this area as large as my hand.). No: No Mass, Distended ( Pain radiates through to the left flank on palpation.), Rigid, Rebound (Male) Exam: No Hernia, Circumcised Back Exam: CVA Tenderness (L). No: CVA Tenderness (R), Decreased Range of Motion, Muscle Spasm Extremities: Normal Inspection, Normal Range of Motion, Non-Tender, No Pedal Edema Neurological: Alert, Oriented, CN II-XII Intact, Normal Cognition, Normal Gait Psychiatric: Normal Affect ([place] anxious), Normal Mood, Anxious Skin Exam: Warm, Intact, Normal Color, No Rash Course - Vital Signs Last Recorded V/S: Last Vital Signs Temp 36.5 C 12/30/19 17:02 Pulse 108 H 12/30/19 17:02 Resp 18 12/30/19 17:02 BP 146/101 H 12/30/19 17:02 Pulse Ox 97 12/30/19 17:02 - Orders/Labs/Meds Orders: Active Orders 24 hr Category Date Time Status Abdomen Pelvis w Cont [CT] Stat Exams 12/30/19 17:44 Taken CULTURE URINE [RM] Stat Lab 12/30/19 17:26 Received cefTRIAXone [Rocephin] 2 gm Med 12/30/19 19:15 Active Sodium Chloride 0.9% [Normal Saline] 100 ml IV Q24H Medication Orders Ceftriaxone Sodium 2 gm/ (Sodium Chloride) 100 mls @ 200 mls/hr IV Q24H RALPH Last Admin: 12/30/19 19:18 Dose: 200 mls/hr Labs: Laboratory Tests 12/30/19 12/30/19 12/30/19 Range/Units 17:26 17:30 17:30 WBC 12.82 H (4.23-9.07) K/mm3 RBC 4.46 L (4.63-6.08) M/mm3 Hgb 10.9 L (13.7-17.5) gm/dl Hct 35.9 L (40.1-51.0) % MCV 80.5 (79.0-92.2) fl MCH 24.4 L (25.7-32.2) pg MCHC 30.4 L (32.2-35.5) g/dl RDW Std Deviation 43.2 (35.1-43.9) fL Plt Count 762 H (163-337) K/mm3 MPV 8.8 L (9.4-12.3) fl Neut % (Auto) 84.6 H (34.0-67.9) % Lymph % (Auto) 9.4 L (21.8-53.1) % [place] % (Auto) 5.1 L (5.3-12.2) % Eos % (Auto) 0.5 L (0.8-7.0) Baso % (Auto) 0.2 (0.1-1.2) % Neut # (Auto) 10.82 H (1.78-5.38) K/mm3 Lymph # (Auto) 1.21 L (1.32-3.57) K/mm3 [place] # (Auto) 0.66 (0.30-0.82) K/mm3 Eos # (Auto) 0.07 (0.04-0.54) K/mm3 Baso # (Auto) 0.03 (0.01-0.08) K/mm3 Manual Slide Review Abnormal smear Sodium 137 (136-145) mEq/L Potassium 3.6 (3.5-5.1) mEq/L Chloride 99 (98-107) mEq/L Carbon Dioxide 25 (21-32) mEq/L Anion Gap 16.6 H (5-15) BUN 14 (7-18) mg/dL Creatinine 0.9 (0.7-1.3) mg/dL Est Cr Clr Drug Dosing 93.08 mL/min Estimated GFR (MDRD) > 60 (>60) mL/min BUN/Creatinine Ratio 15.6 (14-18) Glucose 94 (74-106) mg/dL Calcium 9.4 (8.5-10.1) mg/dL Total Bilirubin 0.3 (0.2-1.0) mg/dL AST 24 (15-37) U/L ALT 34 (16-63) U/L Alkaline Phosphatase 191 H (46-116) U/L Total Protein 9.1 H (6.4-8.2) g/dl Albumin 3.0 L (3.4-5.0) g/dl Globulin 6.1 gm/dL Albumin/Globulin Ratio 0.5 L (1-2) Urine Color Brown H (Yellow) Urine Appearance Turbid H (Clear) Urine pH 5.5 (5.0-8.0) Ur Specific [place] 1.020 (1.005-1.030) Urine Protein 3+ H (Negative) Urine Glucose (UA) Negative (Negative) Urine Ketones 1+ H (Negative) Urine Occult Blood 3+ H (Negative) Urine Nitrite Positive H (Negative) Urine Bilirubin 3+ H (Negative) Urine Urobilinogen 1.0 (0.2-1.0) Ur Leukocyte Esterase 3+ H (Negative) Urine RBC Too numerous to cnt H (0-5) /hpf Urine WBC Too numerous to cnt H (0-5) /hpf Ur Squamous Epith Cells Not seen (0-5) /hpf Amorphous Sediment Many H (NOT SEEN) /hpf Urine Bacteria Many H (FEW) /hpf Urine Mucus Not seen (FEW) /hpf Meds: Medications Generic Name Dose Route Start Last Admin Trade Name Freq PRN Reason Stop Dose Admin Ceftriaxone Sodium 2 gm/ 100 mls @ 200 mls/hr 12/30/19 19:15 12/30/19 19:18 Sodium Chloride IV 200 mls/hr Q24H RALPH Administration Discontinued Medications Generic Name Dose Route Start Last Admin Trade Name Freq PRN Reason Stop Dose Admin Iopamidol 100 ml 12/30/19 18:26 Isovue-300 (61%) IVPUSH 12/30/19 18:27 ONETIME ONE - Radiology Interpretation Free Text/Narrative:: 4-year-old male presents to the ED due to passage of gross blood per urethra x3 since about noon today. He states when he awoke this morning he had some kaz darker colored urine about 10:00 the next urine was fairly clear. After this the last 4 voids have now been pure blood. He had pictures on his phone to show me. Note the patient was seen by me November 04 with a left upper quadrant mass rating through to his back which proved to be a large angiomyolipoma off the lower pole of the left kidney. It was felt that he was perhaps bleeding retroperitoneally and he was sent to [facility] in [place] for interventional radiology to have a look at and apparently he under went surgery the same night that he was seen. Note that the major vessels supplying the lipoma were coiled and sclerosed. Stayed in hospital for about a week due to the severe pain in the left hemiabdomen. Since that time he has done fairly well. He reports no previous bouts of hematuria. Able to obtain a note from Dr. Deysi Webster whom he is seen in follow-up [facility] hospital and his last hemoglobin was reportedly 11.1. Patient is having slightly increased pain in the left mid abdomen left upper quadrant of the abdomen and through to his left flank today. Has no signs or symptoms of feeling dizzy lightheaded or weak. He states he had some fever and chills about a week ago. He also reports that he did see a rn baby oncologist due to thrombocytosis about 2 weeks ago but it was felt to be reactive and no follow-up arrangements were indicated. She has not suffered any trauma to the left flank or left hemiabdomen. - Re-Assessments/Exams Free Text/Narrative Re-Assessment/Exam: 12/30/19 19:03 Hematology reveals a white count of 12.82 with mild left shift of 85% neutrophils on the auto differential. Slide shows lymphopenia with mild thrombocytosis and hypochromia 1+ but no neutrophils hemoglobin is slightly low at 10.9 with hematocrit of 35.9. MCV is 80.5 platelet count is elevated at 762, 000. Sodium is 137 with a potassium of 3.6. Chloride is 99 with a bicarb of 25. Anion gap is 16.6 with a BUN of 14. Creatinine is 0.9 GFR is greater than 60. Glucose is 94 with a calcium of 9.4. Liver function is normal alk phosphatase is mildly elevated however at 191. Total protein is 9.1 with an albumin fraction of 3.0. The urinalysis is brown and turbid with 3+ proteinuria 1+ ketones and 3+ occult blood. It is also nitrate positive with 3 + bilirubin. 3+ leukocyte esterase with too numerous to count RBCs and too numerous to count white blood cells. Many bacteria appreciated. Urine culture will be ordered. 12/30/19 19:10 Discussed the findings with the patient. He will receive Rocephin 2 g IV as he reports that he did have some fever and chills last week. He has had no true dysuria. Pain in his left flank. CT of the abdomen and pelvis done with IV contrast reveals that the angiomyolipoma is no smaller than it was on previous location there is no extravasation of contrast outside of the tumor or the kidney itself. Going to discuss the results with urology services at [facility] in [place] where he went originally on November 04 for interventional radiology attempt to sclerose major vessels to stop the bleeding. 12/30/19 20:04 [facility] report is now available on the CT of the abdomen. Report states as previously seen a large mixed attenuation is appreciated off the left renal midpole. Mass is again identified. There is an increased amount of air present in the lesion compared to prior exam. The mass measures up to 10 cm in diameter. There is a metallic density seen at the left renal midpole level consistent with embolization coil. The soft tissue density medial component of the mass is reduced in thickness compared to previous exam. There is mild left-sided hydronephrosis with a small amount of air within the left renal collecting system. There is no significant hydroureter. Nonobstructing left renal pole calculus is appreciated. Previously seen perinephric edema on the left is no longer appreciated. Stomach and bowel are unremarkable with no obstruction no mucosal thickening. No evidence of appendicitis. Structures unremarkable with no abdominal aortic aneurysm. No enlarged lymph lymph nodes present. There is a small 3 submillimeter calcification present in the bladder but is possibly due to a recently passed stone. Trace amounts of air present in the bladder presumably related to recent catheterization. I therefore spoke with urologist at [facility] in [place] and we also spoke with Dr. Mittal the interventional radiologist. Decision made to have the patient travel to [facility] for admission to hospital since it is unclear how long his gross hematuria will last or the exact cause of this. Definitely a difficult to decide on a course of action for treatment. This may be due to partial necrosis of the angiomyolipoma causing current bleeding. It also could be due to recent passage of a kidney stone although he does not give a history of this. More rarely would be a urinary tract infection. Patient will be sent to that institution per private vehicle with his brother driving as both of our ambulances are out on their way to [place] at this time. Departure - Departure Time of Disposition: 20:00 Disposition: DC/Tfer to Acute Hospital 02 Condition: Fair Clinical Impression: Gross hematuria - Discharge Information *PRESCRIPTION DRUG MONITORING PROGRAM REVIEWED*: Not Applicable *COPY OF PRESCRIPTION DRUG MONITORING REPORT IN PATIENT JEFFERY: Not Applicable Referrals: Alicia Webster MD [Primary Care Provider] - Forms: ED Department Discharge Additional Instructions: Evaluation in the emergency room today in regards to do the development of gross hematuria which means passage of pure blood per urethra when you pass your water. Has occurred on 4 occasions this afternoon. You are known to have a large tumor called an angiomyolipoma which is a rare tumor off the inferior pole of the left kidney diagnosed in October of this year. Previously undergone surgical treatment with interventional radiology sclerosing and putting a coil within the large vessels that supply this area.'s point time it is impossible to tell of the blood in the urine is due to the tumor dying or develop in other vessels that are causing the bleeding. The urinalysis done in the emergency room suggested that there was a component of pus cells mixed in with the red cells to suggest an infective process. You therefore received a dose of antibiotic Rocephin 2 g intravenously in the ED. You are to travel to [facility] in [place] per private vehicle tonight for admission to the hospital. Please stay n.p.o. in case any procedures are contemplated upon arrival at that facility. If not she will be able to eat tonight. the hospitalist is the one that has excepted care and will be doing her admission to the hospital. Sepsis Event Note - Evaluation Sepsis Screening Result: No Definite Risk - Focused Exam Vital Signs: Vital Signs Temp Pulse Resp BP Pulse Ox 12/30/19 17:02 36.5 C 108 H 18 146/101 H 97 Date Exam was Performed: 12/30/19 Time Exam was Performed: 20:04 - My Orders Last 24 Hours: My Active Orders 12/30/19 17:26 CULTURE URINE [RM] Stat 12/30/19 17:44 Abdomen Pelvis w Cont [CT] Stat 12/30/19 19:15 cefTRIAXone [Rocephin] 2 gm Sodium Chloride 0.9% [Normal Saline] 100 ml IV Q24H - Assessment/Plan Last 24 Hours: My Active Orders 12/30/19 17:26 CULTURE URINE [RM] Stat 12/30/19 17:44 Abdomen Pelvis w Cont [CT] Stat 12/30/19 19:15 cefTRIAXone [Rocephin] 2 gm Sodium Chloride 0.9% [Normal Saline] 100 ml IV Q24H
[2019-12-30] MEDS ORDERED: Iopamidol 612 MG/ML 100 ML Bottle IVPUSH ONE (18:26)
[2019-12-30] MEDS ORDERED: cefTRIAXone 2 GM in Sodium Chloride 0.9% 100 ML IV SCH (19:15)
--- NOTE | 2019-12-31 11:45 | CT ---
CT abdomen and pelvis (without and with intravenous contrast) Technique: Multiple axial sections were obtained from above the dome of the diaphragm inferiorly through the pubic symphysis. Intravenous and oral contrast not utilized. Intravenous contrast then given an imaging obtained at 40 seconds through the abdomen and pelvis. 5 minute delayed images were also obtained through the abdomen and pelvis. Comparison: Prior CT abdomen and pelvis exam of 11/22/19. Findings: Large left-sided mass is noted. Calcification as well as fat is seen. Additional low density is seen most likely representing old blood. 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 Increasing air is noted within the mass presumably due to increased necrosis. Size is slightly greater than 10 cm which remains stable from previous exam. Slightly prominent left renal collecting system which is believed to be caused by external impression upon the adjacent ureter. This causes no ureteral obstruction with contrast also noted within the distal ureter and bladder. Right kidney shows no mass. Right ureter shows no obstruction. Visualized lung bases are clear. Visualized liver and spleen appear within normal limits. Adrenal glands show no nodule. Pancreas is normal. Gallbladder contains no calcified gallstones. Aorta shows no aneurysm. No retroperitoneal adenopathy or mesenteric abnormalities are seen. No pelvic mass or adenopathy is seen. Small calcification is noted within the bladder. Difficult to exclude recently or remotely passed ureteral stone. No free fluid or inflammatory change is seen. Bone window settings were reviewed which appear within normal limits for the patient's age. Impression: 1. Left-sided renal mass as described above. No change in size is seen. Increased air is noted most likely relating to increased necrosis. 2. Small calcification within the bladder compatible with prior ureteral stone that has passed. Age of this is otherwise indeterminate but is an interval change from prior CT exam. 3. No additional abnormality is seen on CT study of the abdomen and pelvis. Diagnostic code #3 This report was dictated in MDT I agree with preliminary report from [facility], finalized on 12/30/19, 8:16 PM Central Daylight Time
== END 2019-12-30 20:10 ==
LOC: JD.ED 16:51
DX: R31.0 Gross hematuria (principal); F17.210 Nicotine dependence, cigarettes, uncomplicated; Z91.030 Bee allergy status
CPT/HCPCS: 36415; 74177; 80053; 81001; 85025; 87086; 96365; 99285; J0696; J7050; 99284